=== PATIENT | female | born 1960 | race Asian ===

== ENCOUNTER 2020-06-05 15:21 | Outpatient (REF) | payer OTHER, SELFPAY | END 2020-06-05 15:22 | disposition home or self-care (01) | LOC: HO.LAB 15:21 | PROVIDERS: Visit Provider Internal Medicine | DX: Z20.828 Contact with and (suspected) exposure to other viral communicable diseases (principal) | CPT/HCPCS: C9803; U0003 ==

== ENCOUNTER 2020-07-10 09:14 | Outpatient (REF) | payer OTHER, SELFPAY ==
[2020-07-10 11:10] LABS: MANUAL DIFF FLAG NO
[2020-07-10 11:16] LABS: Basophils Percent Auto 0.8 % (0-2); Eosinophils Absolute Auto 0.2 X10*3/uL (0.0-0.4); Eosinophils Percent Auto 4.2 % (0-4); Hematocrit 39.8 % (37-47); Hemoglobin 13.3 g/dl (12.0-16.0); Imm Gran Abs Auto 0.01 X10*3/uL (0.00-0.03); Imm Gran Pct Auto 0.2 % (0.0-0.4); Lymphocytes Absolute Auto 2.1 X10*3/uL (1.2-4.9); Lymphocytes Percent Auto 39.8 % (20-40); Mean Corpuscular HGB Conc 33.4 g/dl (31.0-35.0); Mean Corpuscular Hemoglobin 27.5 pg (27.0-33.0); Mean Corpuscular Volume 82.4 fL (80-98); Mean Platelet Volume 9.2 fL (9.4-12.3); Monocytes Absolute Auto 0.4 X10*3/uL (0.1-1.2); Monocytes Percent Auto 7.1 % (2-11); Neutrophils Absolute Auto 2.5 X10*3/uL (2.0-8.3); Neutrophils Percent Auto 47.9 % (45-73); Platelet Count 298 X10*3/uL (160-400); Red Blood Count 4.83 X10*6/uL (4.20-5.50); Red Cell Distribution Width 15.7 % (11.0-16.0); White Blood Count 5.2 X10*3/uL (4.8-10.8)
[2020-07-10 11:49] LABS: Alanine Aminotransferase 18 U/L (0-31); Albumin Level 4.4 g/dL (3.5-5.0); Alkaline Phosphatase 85 U/L (39-117); Anion Gap 11 (12-20); Aspartate Amino Transferase 19 U/L (5-31); Bilirubin Total 1.1 mg/dL (0.0-1.0); Blood Urea Nitrogen 15 mg/dL (9-16); Calcium 9.9 mg/dL (8.4-10.2); Carbon Dioxide 23 mmol/L (22-29); Chloride 108 mmol/L (96-108); Cholesterol 180 mg/dL; Estimated Glomerular Filt Rate > 60; Glucose Fasting 97 mg/dL (60-99); HDL Cholesterol 52 mg/dL; LDL Cholesterol Calculated 100 mg/dl; Potassium 4.2 mmol/L (3.3-5.1); Sodium 138 mmol/L (135-145); Total Protein 7.2 g/dL (6.5-8.0); Triglycerides 140 mg/dL
[2020-07-10 12:00] LABS: Ferritin 214 ng/mL (10-250); TSH reflex Free T4 1.02 uIU/mL (0.32-4.0)
[2020-07-10 12:17] LABS: Folate 18.1 ng/mL (> or = 4.0); Vitamin B12 1221 pg/mL (200-900)
[2020-07-11 17:33] LABS: Calcium, Ionized 5.6 mg/dL (4.8-5.6)
== END 2020-07-10 09:15 | disposition home or self-care (01) ==
LOC: HO.HMGCLDS 09:14
PROVIDERS: PCP Internal Medicine; Visit Provider Internal Medicine
DX: Z00.01 Encounter for general adult medical examination with abnormal findings (principal); E21.3 Hyperparathyroidism, unspecified; I10 Essential (primary) hypertension; Z78.0 Asymptomatic menopausal state
CPT/HCPCS: 36415; 80053; 80061; 82306; 82330; 82607; 82728; 82746; 84443; 85025

== ENCOUNTER 2022-10-01 12:25 | Outpatient (AMB) | payer OTHER, SELFPAY ==
[2022-10-01 13:08] VITALS: BP 120/66; PULSE 60; O2SAT 98; BMI 19.9
--- NOTE | 2022-10-01 13:08 | A.OFFPC_ITS ---
Vital Signs 10/01/22 13:08 Height 5 ft 2 in Weight 109 lb BMI 19.9 BP 120/66 Blood Pressure Location Lt brachial Position Sitting Pulse 60 Pulse Source Pulse Oximeter Pulse Oximetry (%) 98 Oxygen Delivery Method Room Air Intake Visit Reasons: Annual PE Intake Note: Pt is here today for PE.Pt states that she had mammo done this year in July. Pt states that she does not have [employer]. Allergies No Known Allergies [No Known Allergies*] Allergy (Verified 10/21/23 00:34) Medication List - Last Reconciled 10/01/22 by Steffi Calderon MD amlodipine 2.5 mg PO DAILY ferrous sulfate 325 mg PO DAILY magnesium oxide 400 mg PO DAILY multivitamin with minerals (Hair,Skin and Nails tablet) 1 tab PO DAILY vitamin B complex (B Complex-Vitamin B12 tablet) 1 tab PO DAILY vitamin E 200 units PO DAILY Tobacco use date assessed: 10/01/22 HPI Annual PE HPI Details 63-year-old Lady here today for her phys ical exam. She has hypertension currently takes amlodipine 2.5 mg daily with blood pressure stable and controlled. She goes to [facility] imaging for her routine mammogram, last 1 on record was in 2020 but patient states that she goes every year. She had a Pap smear in 2018 which showed negative findings except for atrophic mucosa.. She had a screening colonoscopy done in 2013 by , which showed only presence of nonbleeding internal hemorrhoids, due again for recheck in 2023.. Has primary hyperparathyroidism currently asymptomatic, seen by [facility] endo who advised observation and monitoring of calcium levels. She is active exercises regularly, and eats a healthy diet. Has been feeling well with no complaints at present time. [facility] Medical History (Updated 10/12/23 @ 13:52 by Steffi Calderon MD) Cervical cancer screening Annual visit for general adult medical examination with abnormal findings Essential hypertension Hyperparathyroidism Menopause Surgical History History of colonoscopy History of tubal ligation History of section Family History Father HTN (hypertension) Arthritis Mother HTN (hypertension) Arthritis Brother No problems noted. Brother No problems noted. Brother No problems noted. Sister No problems noted. Sister No problems noted. Son No problems noted. Daughter No problems noted. Daughter No problems noted. Social History Housing: House Alcohol intake: current Alcohol intake frequency: holidays/special occasions only Alcohol type: wine Patient Tobacco Use Status: Former Tobacco user (over 30 years ago) e-Cigarette/Vaping Use: Never Used service: No Current occupational status: employed Cognitive needs: No Hearing needs: No Vision needs: Yes Questionnaire PHQ-9 Over the last 2 weeks, how often have you been bothered by any of the following problems? 1. Little interest or pleasure in doing things: not at all 2. Feeling down, depressed, or hopeless: not at all 3. Trouble falling or staying asleep, or sleeping too much: not at all 4. Feeling tired or having little energy: not at all 5. Poor appetite or overeating: not at all 6. Feeling bad about yourself - or that you are a failure or have let yourself or your family down: not at all 7. Trouble concentrating on things, such as reading the newspaper or watching television: not at all 8. Moving or speaking so slowly that other people could have noticed. Or the opposite - being so fidgety or restless that you have been moving around a lot more than usual: not at all 9. Thoughts that you would be better off or of hurting yourself in some way: not at all Total score: 0 Depression Screening Interpretation: Negative [id number] - PHQ-9 Billing: Yes Source: Developed by Drs. Tino Luis, Amalia Shields, Rasheed Chan and colleagues, with an educational eliezer from [employer]. Thrive Questionnaire Date Thrive assessed: 10/01/22 I am a: Patient What is your living situation today?: I have a steady place to live Within the past 12 months, did the food you bought not last and you didn't have the money to get more?: Never true Within the past 12 months, did you worry whether your food would run out before you got money to buy more?: Never true Do you have trouble paying for medicines?: No Do you have trouble getting transportation to medical appointments?: No Do you have trouble paying your heating and electricity bill?: No Do you have trouble taking care of your child, family member or friend?: No Do you have trouble with day-to-day activities such as bathing, preparing meals, shopping, managing finances, etc.?: No Are you currently unemployed and looking for a job?: No Are you interested in more education?: No AUDIT C Alcohol Use Questionnaire (AUDIT-C) 1. How often do you have a drink containing alcohol?: Monthly or less 2. How many drinks containing alcohol do you have on a typical day when you are drinking?: 1 or 2 3. How often do you have six or more drinks on one occasion?: Never Total Score: 1 PRANAY-7 AMB Questionnaire PRANAY-7 Date PRANAY - 7 assessed: 10/01/22 Feeling nervous, anxious, or on edge: 0 = Not at all Not being able to stop or control worryin = Not at all Worrying too much about different things: 0 = Not at all Trouble relaxin = Not at all Being so restless that it is hard to sit still: 0 = Not at all Becoming easily annoyed or irritable: 0 = Not at all Feeling afraid as if something awful might happen: 0 = Not at all Total PRANAY-7 score (0-4 normal; 5-9 mild; 10-14 moderate; 15-21 severe): 0 Source: Developed by Drs. Tino Luis, Amalia Shields, Rasheed Chan and colleagues, with an educational eliezer from [employer]. PRANAY-7 Assessment Billing PRANAY-7 Assessment Tool: PRANAY-7 Assessment 76085 Review of Systems Const Denies body aches, Denies fatigue, Denies fever(s), Denies headache(s) and Denies weakness Eyes Denies change in vision ENT Denies dizziness, Denies headache(s), Denies nasal congestion, Denies nasal discharge and Denies sore throat Card Denies chest pain, Denies lightheadedness, Denies palpitations and Denies dyspnea Resp Denies chest congestion, Denies cough, Denies dyspnea and Denies wheezing GI Denies abdominal pain, Denies change in bowel habits and Denies heartburn Denies urinary frequency, Denies dysuria and Denies urinary urgency Musc Denies back pain, Denies myalgias, Denies arthralgias and Denies stiffness Skin/Breast Denies lesions and Denies rash Neuro Denies dizziness, Denies headache(s), Denies memory loss and Denies weakness Psych Denies anxiety, Denies depression, Denies difficulty concentrating, Denies anhedonia and Denies memory loss Endo Denies fatigue, Denies polydipsia, Denies polyuria and Denies palpitations Derek/Lymph Denies easy bruising Aller/Immun Denies seasonal rhinorrhea and Denies wheezing Physical exam (Primary Care) Vital Signs: Last Vital Signs Pulse 60 10/01/22 13:08 BP 120/66 10/01/22 13:08 Pulse Ox 98 10/01/22 13:08 Oxygen Delivery Method Room Air 10/01/22 13:08 BMI result Body Mass Index 19.9 Tobacco/Smoking Status: Tobacco use Status Tobacco use date assessed 10/01/22 10/01/22 13:16 Patient Tobacco Use Status Former Tobacco user (over 30 10/01/22 13:16 years ago) e-Cigarette/Vaping Use Never Used 10/01/22 13:16 PHQ-9: PHQ-9 Score PHQ-9: Total score 0 10/01/22 14:15 Depression Screening Interpretation: Negative Thrive Assessment: Date of Thrive Assessment Date Thrive assessed 10/01/22 10/01/22 13:16 Const General: no acute distress and alert Orientation/consciousness: patient oriented x3 HENMT Head: Yes normocephalic Ears: external ears normal, TM's normal bilaterally and EAC's normal General nose exam: Normal external nose present and No nasal discharge present Face and sinus: Yes face symmetric Mouth: Normal oral and palatal mucosa present, tongue normal, oropharynx normal and moist mucous membranes Eyes General: appearance normal, both eyes and all related structures Eyelids: Yes eyelids normal Conjunctivae: conjunctivae normal Sclerae: sclerae normal Pupils: Equal, round and reactive pupils present EOM: EOMs intact bilaterally Neck Neck: Yes full ROM, Yes no lymphadenopathy and Yes supple Thyroid: Thyroid normal Chest Chest palpation & inspection: normal inspection of the chest Breast/axilla inspection: normal inspection of the breasts Breast/axilla palpation: normal palpation of the breasts Resp Effort & Inspection: normal respiratory effort and able to speak in complete sentences Auscultation: clear to auscultation bilaterally Cardio Rate: regular rate Rhythm: regular rhythm Heart sounds: S1 normal heart sound present and S2 normal heart sound present GI Palpation (GI): Soft to palpation, nontender, no guarding and no masses Auscultation: normal bowel sounds General: Yes no CVA tenderness Back/Spine/Pelvis Back: no CVA tenderness and No back tenderness Skin General skin exam: no rashes or lesions noted Neuro General: patient oriented x3, gait normal, moves all extremities, Normal light touch and pain sensation, no focal motor deficits and CN's II-XI intact bilaterally Cranial nerves: Yes Equal, round and reactive pupils present Cognition (Neuro): normal cognition Gait exam (Neuro): Normal gait present Motor exam (neuro): 5/5 motor strength present throughout Extrem General: Yes normal to inspection, Yes full ROM, Yes no joint enlargement, Yes no pedal edema and Yes normal gait Psych Appearance: grossly normal and well kempt Mental Status: mental status grossly normal Speech and movement: Normal speech and movement present Affect: normal affect Attitude: cooperative Thought process: Normal thought process present Thought content: Normal thought content present Results Reviewed Results Reviewed: Name: Tomasa Renee Age/Sex: 60/F : 1960 Unit#: [id number] Attend Dr: Steffi Calderon MD Re07/10/20 Status: DEP REF Location: [facility] Disch: SPEC : [id number] CARTER: 07/10/20 STATUS: COMP REQ : [id number] RECD: 07/10/[address]: Steffi Calderon MD COMP: 07/10/20 ENTERED: 07/10/20 [facility] DR: ORDERED: CMP Fast, Ferritin, Lipid Panel, Vitamin D 25-OH, TSH Rflx Test Result Flag Reference Sodium 138 135-145 mmol/L Potassium 4.2 3.3-5.1 mmol/L CL 108 96-108 mmol/L CO2 23 22-29 mmol/L Gap 11 L 12-20 BUN 15 9-16 mg/dL Creat 0.83 0.5-1.4 mg/dL EGFR > 60 NOTE: For -British individuals, multiply the result by 1.210. Chronic Kidney Disease: Estimated GFR < 60 mL/min/1.73m2 Severe Kidney Disease: Estimated GFR < 15 mL/min/1.73m2 FBS 97 60-99 mg/dL CA 9.9 8.4-10.2 mg/dL Ferritin 214 10-250 ng/mL Total Bili 1.1 H 0.0-1.0 mg/dL AST (GOT) 19 5-31 U/L ALT (GPT) 18 0-31 U/L Protein, Total 7.2 6.5-8.0 g/dL Alb 4.4 3.5-5.0 g/dL Triglyceride 140 mg/dL Desirable Triglyceride: less than 150 mg/dL Borderline High Triglyceride 150-199 mg/dL High Triglyceride: 200-499 mg/dL Very High Triglyceride: greater than or equal to 5OO mg/dL Chol 180 mg/dL Desirable Cholesterol: less than 200 mg/dL Borderline High Cholesterol: 200-239 mg/dL High Cholesterol: greater than 239 mg/dL LDL Calculated 100 mg/dl Desirable LDL: less than 100 mg/dL Near Optimal/Above Optimal LDL: 110-129 mg/dL Borderline High LDL: 130-159 mg/dL High LDL: 160-189 mg/dL Very High LDL: greater than or equal to 190 mg/dL HDL 52 mg/dL Desirable HDL: greater than 40 mg/dL Note: This HDL assay may give artificially low results in patients with liver disease. Alk Phos 85 39-117 U/L Vit D 25-OH Tot 24.0 >30 ng/mL Health Based Reference Values* < 20 ng/mL Deficient 20-30 ng/mL Insufficient > 30 ng/mL Sufficient *Piper MORILLO. N Engl J Med. 2007;[id number]:266-280 Care must be taken in interpreting Vitamin D results from different laboratories and methodologies. Published data demonstrated that results from patients undergoing hemodialysis may show a negative bias when tested with various automated 25-OH vitamin D assays when compared to LC-MS/MS. When testing samples from patients whose predominant form of Vitamin D is Vitamin D2, such as patients receiving Vitamin D2 supplementation, results that are subtherapeutic should be confirmed with another method such as LC-MS/MS. TSH 1.02 0.32-4.0 uIU/mL Assessment and Plan Assessment & Plan (1) Annual visit for general adult medical examination with abnormal findings: Code(s): Z00.01 - Encounter for general adult medical examination with abnormal findings Plan: Will check appropriate labs. Continue regular dental visit every 6 months and regular eye exams, at least every 2 years. Take vitamin-D 3 at 2000 IU per cap once a day, in addition to weight-bearing exercises to help maintain good muscle tone and weight control. Continue to do self-breast exam, and yearly mammogram, gets it at [facility]. Up-to-date with her cervical cancer screening and screening colonoscopy. She has had 1 COVID vaccine does not want to get further vaccination, up-to-date with her shingles vaccine and Tdap, declines flu shots (2) Hyperparathyroidism: Code(s): E21.3 - Hyperparathyroidism, unspecified Plan: Currently asymptomatic with serum calcium within normal limits. (3) Essential hypertension: Code(s): I10 - Essential (primary) hypertension Plan: Blood pressure well controlled on amlodipine 2.5 mg daily, will continue, reinforced importance of regular exercise and healthy eating habits. (4) Vitamin D deficiency: Code(s): E55.9 - Vitamin D deficiency, unspecified Plan: last labs showed vitamin-D at 24. Advised to start taking [id number] vitamin D3 at 2000 units daily Orders: Orders Complete Blood Count Auto Diff 10/01/22 E21.3 - Hyperparathyroidism, unspecified, I10 - Essential (primary) hypertension, Z00.01 - Encounter for general adult medical examination with abnormal findings Vitamin D 25-OH Total 10/01/22 E21.3 - Hyperparathyroidism, unspecified, I10 - Essential (primary) hypertension, Z00.01 - Encounter for general adult medical examination with abnormal findings Comprehensive [place]. Panel Fast 10/01/22 E21.3 - Hyperparathyroidism, unspecified, I10 - Essential (primary) hypertension, Z00.01 - Encounter for general adult medical examination with abnormal findings Lipid Panel 10/01/22 E21.3 - Hyperparathyroidism, unspecified, I10 - Essential (primary) hypertension, Z00.01 - Encounter for general adult medical examination with abnormal findings Vitamin B12 and Folate 10/01/22 E21.3 - Hyperparathyroidism, unspecified, I10 - Essential (primary) hypertension, Z00.01 - Encounter for general adult medical examination with abnormal findings Coding Level of Care Code Est Pt Prev Care 40-64y(79627) Diagnoses Annual visit for general adult medical examination with abnormal findings Z00.01 Hyperparathyroidism E21.3 Essential hypertension I10 Vitamin D deficiency E55.9 Additional Codes PRANAY-7 Assessment Billing - PRANAY-7 Assessment Tool: PRANAY-7 Assessment [id number] ([id number])
== END 2022-10-01 14:28 | disposition home or self-care (01) ==
LOC: HO.HMGC 12:25
PROVIDERS: PCP Internal Medicine; Visit Provider Internal Medicine
DX: Z00.01 Encounter for general adult medical examination with abnormal findings (principal); E21.3 Hyperparathyroidism, unspecified; I10 Essential (primary) hypertension; E55.9 Vitamin D deficiency, unspecified
CPT/HCPCS: 99499

== ENCOUNTER 2023-10-12 12:40 | Outpatient (AMB) | payer OTHER, SELFPAY ==
[2023-10-12 12:53] VITALS: BP 118/74; PULSE 73; O2SAT 98; BMI 19.8
--- NOTE | 2023-10-12 12:53 | A.OFFPC_ITS ---
Vital Signs 10/12/23 12:53 Height 5 ft 2 in Weight 108 lb BMI 19.8 BP 118/74 Blood Pressure Location Lt brachial Position Sitting Pulse 73 Pulse Source Pulse Oximeter Pulse Oximetry (%) 98 Oxygen Delivery Method Room Air Intake Visit Reasons: PE with pap Intake Note: Pt is here today for PE. Last pap 2019 negative Allergies No Known Allergies [No Known Allergies*] Allergy (Verified 10/21/23 00:34) Medication List - Last Reconciled 10/21/23 by Steffi Calderon MD amlodipine 2.5 mg PO DAILY ferrous sulfate 325 mg PO DAILY magnesium oxide 400 mg PO DAILY multivitamin with minerals (Hair,Skin and Nails tablet) 1 tab PO DAILY vitamin B complex (B Complex-Vitamin B12 tablet) 1 tab PO DAILY vitamin E 200 units PO DAILY Tobacco use date assessed: 10/12/23 Dental Screening Dental Screen Date: 10/12/23 Did you have a dental visit in the last 12 months?: Yes Did you have a dental problem in the last 6 months where you did not have access to dental care?: No Was dental information given to patient?: Patient has dentist HPI PE with pap HPI Details 63-year-old lady here today for physical exam. She has hypertension currently controlled on amlodipine 2.5 mg daily. Has history of vitamin-D deficiency in the past currently now on multivitamins that includes vitamin-D. Has history of primary hyperparathyroidism currently asymptomatic with serum calcium levels within normal limits. She is due now for her cervical cancer screening, last done in 2019 which only showed presence of atrophic vaginal mucosa. Up-to-date with her screening colonoscopy done in 2013 by , which showed negative findings. She only had 1 COVID vaccine did not want to get further vaccination, up-to-date with her shingles vaccine does not get flu shots up-to-date with her Tdap.. She goes to [facility] for her routine screening mammogram. Has been feeling well with no complaints at present time [facility] Medical History (Updated 10/12/23 @ 13:52 by Steffi Calderon MD) Cervical cancer screening Annual visit for general adult medical examination with abnormal findings Essential hypertension Hyperparathyroidism Menopause Surgical History History of colonoscopy History of tubal ligation History of section Family History Father HTN (hypertension) Arthritis Mother HTN (hypertension) Arthritis Brother No problems noted. Brother No problems noted. Brother No problems noted. Sister No problems noted. Sister No problems noted. Son No problems noted. Daughter No problems noted. Daughter No problems noted. Social History Housing: House Alcohol intake: current Alcohol intake frequency: holidays/special occasions only Alcohol type: wine Patient Tobacco Use Status: Former Tobacco user (over 30 years ago) e-Cigarette/Vaping Use: Never Used service: No Current occupational status: employed Cognitive needs: No Hearing needs: No Vision needs: Yes Questionnaire PHQ-9 Over the last 2 weeks, how often have you been bothered by any of the following problems? 1. Little interest or pleasure in doing things: not at all 2. Feeling down, depressed, or hopeless: not at all 3. Trouble falling or staying asleep, or sleeping too much: not at all 4. Feeling tired or having little energy: not at all 5. Poor appetite or overeating: not at all 6. Feeling bad about yourself - or that you are a failure or have let yourself or your family down: not at all 7. Trouble concentrating on things, such as reading the newspaper or watching television: not at all 9. Thoughts that you would be better off or of hurting yourself in some way: not at all Depression Screening Interpretation: Negative Depression Screening Done: Yes 81145 - PHQ-9 Billing: Yes Source: Developed by Drs. Tino Luis, Amalia Shields, Rasheed Chan and colleagues, with an educational eliezer from [employer]. Thrive Questionnaire Date Thrive assessed: 10/12/23 I am a: Patient What is your living situation today?: I have a steady place to live Within the past 12 months, did the food you bought not last and you didn't have the money to get more?: Never true Within the past 12 months, did you worry whether your food would run out before you got money to buy more?: Never true Do you have trouble paying for medicines?: No Do you have trouble getting transportation to medical appointments?: No Do you have trouble paying your heating and electricity bill?: No Do you have trouble taking care of your child, family member or friend?: No Do you have trouble with day-to-day activities such as bathing, preparing meals, shopping, managing finances, etc.?: No Are you currently unemployed and looking for a job?: No Are you interested in more education?: No Please select the resources that you would like help with: None THRIVE Score: 0 AUDIT C Alcohol Use Questionnaire (AUDIT-C) 1. How often do you have a drink containing alcohol?: Monthly or less 2. How many drinks containing alcohol do you have on a typical day when you are drinking?: 1 or 2 3. How often do you have six or more drinks on one occasion?: Never Total Score: 1 PRANAY-7 AMB Questionnaire PRANAY-7 Date PRANAY - 7 assessed: 10/12/23 Feeling nervous, anxious, or on edge: 1 = Several days Not being able to stop or control worryin = Several days Worrying too much about different things: 1 = Several days Trouble relaxin = Not at all Being so restless that it is hard to sit still: 0 = Not at all Becoming easily annoyed or irritable: 0 = Not at all Feeling afraid as if something awful might happen: 0 = Not at all Total PRANAY-7 score (0-4 normal; 5-9 mild; 10-14 moderate; 15-21 severe): 3 Source: Developed by Drs. Tino Luis, Amalia Shields, Rasheed Chan and colleagues, with an educational eliezer from [employer]. PRANAY-7 Assessment Billing PRANAY-7 Assessment Tool: PRANAY-7 Assessment 21464 Review of Systems Const Reports no additional complaints Eyes Details: utd with eye exam ENT Reports no additional complaints Card Denies chest pain, Denies irregular heart rhythm, Denies lightheadedness and Denies dyspnea Resp Denies cough and Denies dyspnea GI Reports no additional complaints Reports no additional complaints Musc Reports no additional complaints Skin/Breast Denies breast pain, Denies breast mass, Denies dry skin and Denies rash Neuro Reports no additional complaints Psych Reports no additional complaints Endo Reports no additional complaints Derek/Lymph Reports no additional complaints Aller/Immun Reports no additional complaints Physical exam (Primary Care) Vital Signs: Last Vital Signs Pulse 73 10/12/23 12:53 BP 118/74 10/12/23 12:53 Pulse Ox 98 10/12/23 12:53 Oxygen Delivery Method Room Air 10/12/23 12:53 BMI result Body Mass Index 19.8 Tobacco/Smoking Status: Tobacco use Status Tobacco use date assessed 10/12/23 10/12/23 12:57 Patient Tobacco Use Status Former Tobacco user (over 30 10/12/23 12:57 years ago) e-Cigarette/Vaping Use Never Used 10/12/23 12:57 Depression Screening Interpretation: Negative Thrive Assessment: Date of Thrive Assessment Date Thrive assessed 10/12/23 10/12/23 13:25 Const General: no acute distress and alert Orientation/consciousness: patient oriented x3 HENMT Head: Yes normocephalic Ears: external ears normal, TM's normal bilaterally and EAC's normal General nose exam: Normal external nose present Face and sinus: Yes face symmetric Mouth: Normal oral and palatal mucosa present, tongue normal, oropharynx normal and moist mucous membranes Eyes General: appearance normal, both eyes and all related structures Eyelids: Yes eyelids normal Conjunctivae: conjunctivae normal Sclerae: sclerae normal Pupils: Equal, round and reactive pupils present EOM: EOMs intact bilaterally Neck Neck: Yes full ROM, Yes no lymphadenopathy and Yes supple Thyroid: Thyroid normal Chest Chest palpation & inspection: normal inspection of the chest Breast/axilla inspection: normal inspection of the breasts Breast/axilla palpation: normal palpation of the breasts Resp Effort & Inspection: normal respiratory effort and able to speak in complete sentences Auscultation: clear to auscultation bilaterally Cardio Rate: regular rate Rhythm: regular rhythm Heart sounds: S1 normal heart sound present and S2 normal heart sound present GI Palpation (GI): Soft to palpation, nontender, no guarding and no masses Auscultation: normal bowel sounds General: Yes bladder normal to palpation and Yes no CVA tenderness External Female Exam: normal external appearance and normal appearance of the urethra Speculum Exam - Vagina: normal appearance of the vagina, normal palpation and vagina atrophic Speculum Exam - Cervix: normal appearance of the cervix and normal palpation Bimanual exam- vagina & uterus: normal palpation, bladder normal to palpation, normal palpation and non-tender Bimanual Exam- Adnexa, other: no masses, normal and No adnexal tenderness Back/Spine/Pelvis Back: no CVA tenderness and No back tenderness Skin General skin exam: no rashes or lesions noted Neuro General: patient oriented x3, gait normal, moves all extremities, Normal light touch and pain sensation, no focal motor deficits and CN's II-XI intact bilaterally Cranial nerves: Yes Equal, round and reactive pupils present Cognition (Neuro): normal cognition Gait exam (Neuro): Normal gait present Motor exam (neuro): 5/5 motor strength present throughout Extrem General: Yes normal to inspection, Yes full ROM, Yes no joint enlargement, Yes no pedal edema and Yes normal gait Psych Appearance: grossly normal and well kempt Mental Status: mental status grossly normal Speech and movement: Normal speech and movement present Affect: normal affect Attitude: cooperative Thought process: Normal thought process present Thought content: Normal thought content present Assessment and Plan Assessment & Plan (1) Hyperparathyroidism: Code(s): E21.3 - Hyperparathyroidism, unspecified (2) Essential hypertension: Code(s): I10 - Essential (primary) hypertension (3) Annual visit for general adult medical examination with abnormal findings: Code(s): Z00.01 - Encounter for general adult medical examination with abnormal findings Plan: Will check appropriate labs. Continue regular dental visit every 6 months and regular eye exams, at least every 2 years. Continued regular exercise, adhere nce to healthy eating habits, continue taking vitamin-D 3 at least 2000 units daily. Continue to do self-breast exam, and get yearly mammogram Pap smear done today.. Patient states she will contact Dr. Shaikh to schedule her repeat screening colonoscopy. Up-to-date with her shingles vaccine, does not want to get further COVID vaccination or flu shot, up-to-date with her Tdap (4) Cervical cancer screening: Code(s): Z12.4 - Encounter for screening for malignant neoplasm of cervix Plan: Pap smear done today Orders: Orders Vitamin D 25-OH Total 10/12/23 Z00.01 - Encounter for general adult medical examination with abnormal findings, E21.3 - Hyperparathyroidism, unspecified, I10 - Essential (primary) hypertension, Z78.0 - Asymptomatic menopausal state Basic Metabolic Panel Fasting 10/12/23 Z00. - Encounter for general adult medical examination with abnormal findings, E21.3 - Hyperparathyroidism, unspecified, I10 - Essential (primary) hypertension, Z78.0 - Asymptomatic menopausal state Alanine Aminotransferase 10/12/23 Z00.01 - Encounter for general adult medical examination with abnormal findings, E21.3 - Hyperparathyroidism, unspecified, I10 - Essential (primary) hypertension, Z78.0 - Asymptomatic menopausal state Aspartate Amino Transferase 10/12/23 Z00.01 - Encounter for general adult medical examination with abnormal findings, E21.3 - Hyperparathyroidism, unspecified, I10 - Essential (primary) hypertension, Z78.0 - Asymptomatic menopausal state Lipid Panel 10/12/23 Z00.01 - Encounter for general adult medical examination with abnormal findings, E21.3 - Hyperparathyroidism, unspecified, I10 - Essential (primary) hypertension, Z78.0 - Asymptomatic menopausal state Vitamin B12 and Folate 10/12/23 Z00.01 - Encounter for general adult medical examination with abnormal findings, E21.3 - Hyperparathyroidism, unspecified, I10 - Essential (primary) hypertension, Z78.0 - Asymptomatic menopausal state Coding Level of Care Code Est Pt Prev Care 40-64y([id number]) Diagnoses Hyperparathyroidism E21.3 Essential hypertension I10 Annual visit for general adult medical examination with abnormal findings Z00.01 Cervical cancer screening Z12.4 Additional Codes PRANAY-7 Assessment Billing - PRANAY-7 Assessment Tool: PRANAY-7 Assessment 49302 ([id number])
== END 2023-10-12 13:58 | disposition home or self-care (01) ==
PROVIDERS: Visit Provider Internal Medicine
DX: Z00.00 Encounter for general adult medical examination without abnormal findings (principal); E21.3 Hyperparathyroidism, unspecified; I10 Essential (primary) hypertension
CPT/HCPCS: 99396

== ENCOUNTER 2023-10-12 13:50 | Outpatient (REF) | payer OTHER, SELFPAY | END 2023-10-12 13:51 | disposition home or self-care (01) | LOC: HO.LAB 13:50 | PROVIDERS: Visit Provider Internal Medicine | DX: Z13.89 Encounter for screening for other disorder (principal) ==

== ENCOUNTER 2023-10-21 06:08 | Outpatient (REF) | payer OTHER, SELFPAY ==
[2023-10-21 11:11] LABS: Alanine Aminotransferase 18 U/L (0-31); Anion Gap 13 (12-20); Aspartate Amino Transferase 20 U/L (5-31); Blood Urea Nitrogen 16 mg/dL (9-16); Calcium 10.2 mg/dL (8.4-10.2); Carbon Dioxide 25 mmol/L (22-29); Chloride 107 mmol/L (96-108); Cholesterol 156 mg/dL (<200); Estimated Glomerular Filt Rate > 60; Glucose Fasting 87 mg/dL (60-99); HDL Cholesterol 62 mg/dL (>40); LDL Cholesterol Calculated 75 mg/dL (<100); Potassium 3.9 mmol/L (3.3-5.1); Sodium 141 mmol/L (135-145); Triglycerides 99 mg/dL (<150)
[2023-10-21 11:28] LABS: Vitamin D 25-OH Total 35.1 ng/mL (>30)
[2023-10-21 11:33] LABS: Folate 12.9 ng/mL (> or = 4.0); Vitamin B12 1662 pg/mL (200-900)
== END 2023-10-21 06:09 | disposition home or self-care (01) ==
LOC: HO.HMGCLDS 06:08
PROVIDERS: PCP Internal Medicine; Visit Provider Internal Medicine
DX: Z00.01 Encounter for general adult medical examination with abnormal findings (principal); E21.3 Hyperparathyroidism, unspecified; I10 Essential (primary) hypertension; Z78.0 Asymptomatic menopausal state
CPT/HCPCS: 36415; 80048; 80061; 82306; 82607; 82746; 84450; 84460

== ENCOUNTER 2023-11-15 13:55 | Outpatient (REF) | payer OTHER, SELFPAY | END 2023-11-15 13:56 | disposition home or self-care (01) | LOC: HO.MAMMO 13:55 | PROVIDERS: PCP Internal Medicine; Visit Provider Internal Medicine | DX: Z12.31 Encounter for screening mammogram for malignant neoplasm of breast (principal) | CPT/HCPCS: 77063; 77067 ==

== ENCOUNTER → 2023-11-15 14:00 | Outpatient (BNV) | payer OTHER, SELFPAY | PROVIDERS: PCP Internal Medicine; Visit Provider Radiology Diagnostic Radiology | DX: Z12.31 Encounter for screening mammogram for malignant neoplasm of breast (principal) | CPT/HCPCS: 77063; 77067 ==

== ENCOUNTER 2024-10-18 06:41 | Outpatient (REF) | payer OTHER, SELFPAY ==
[2024-10-18 11:05] LABS: Anion Gap 11 (12-20); Blood Urea Nitrogen 19 mg/dL (9-16); Calcium 10.5 mg/dL (8.4-10.2); Carbon Dioxide 27 mmol/L (22-29); Chloride 108 mmol/L (96-108); Cholesterol 154 mg/dL (<200); Estimated Glomerular Filt Rate > 60; Glucose Fasting 92 mg/dL (60-99); HDL Cholesterol 61 mg/dL (>40); LDL Cholesterol Calculated 75 mg/dL (<100); Potassium 4.1 mmol/L (3.3-5.1); Sodium 142 mmol/L (135-145); Triglycerides 94 mg/dL (<150)
[2024-10-18 11:20] LABS: Vitamin D 25-OH Total 38.9 ng/mL (>30)
[2024-10-18 11:29] LABS: Folate 13.1 ng/mL (> or = 4.0); Vitamin B12 952 pg/mL (200-900)
== END 2024-10-18 06:42 | disposition home or self-care (01) ==
LOC: HO.HMGCLDS 06:41
PROVIDERS: PCP Internal Medicine; Visit Provider Internal Medicine
DX: E21.3 Hyperparathyroidism, unspecified (principal); Z78.0 Asymptomatic menopausal state; I10 Essential (primary) hypertension
CPT/HCPCS: 36415; 80048; 80061; 82306; 82607; 82746

== ENCOUNTER 2024-10-23 12:39 | Outpatient (REF) | payer OTHER, SELFPAY ==
[2024-10-23 16:23] LABS: MANUAL DIFF FLAG NO
[2024-10-23 16:42] LABS: Basophils Absolute Auto 0.1 X10*3/uL (0.0-0.2); Eosinophils Absolute Auto 0.2 X10*3/uL (0.0-0.4); Eosinophils Percent Auto 3.2 % (0-4); Hematocrit 39.8 % (37.0-47.0); Hemoglobin 13.4 g/dl (12.0-16.0); Imm Gran Abs Auto 0.01 X10*3/uL (0.00-0.03); Imm Gran Pct Auto 0.2 % (0.0-0.4); Lymphocytes Absolute Auto 2.8 X10*3/uL (1.2-4.9); Lymphocytes Percent Auto 44.1 % (20-40); Mean Corpuscular HGB Conc 33.7 g/dl (31.0-35.0); Mean Corpuscular Hemoglobin 27.9 pg (27.0-33.0); Mean Corpuscular Volume 82.9 fL (80.0-98.0); Mean Platelet Volume 9.8 fL (9.4-12.3); Monocytes Absolute Auto 0.5 X10*3/uL (0.1-1.2); Monocytes Percent Auto 7.2 % (2-11); Neutrophils Absolute Auto 2.8 x10*3/uL (2.0-8.3); Neutrophils Percent Auto 44.3 % (45-73); Platelet Count 278 X10*3/uL (160-400); Red Cell Distribution Width 15.9 % (11.0-16.0); White Blood Count 6.3 X10*3/uL (4.8-10.8)
[2024-10-23 17:06] LABS: Iron 74 mcg/dL (30-160); Percent Iron Saturation 34 % (15-50); Total Iron Binding Capacity 220 mcg/dL (228-428); Unsaturated Iron Binding 146 ug/dL
== END 2024-10-23 12:40 | disposition home or self-care (01) ==
LOC: HO.HMGCLDS 12:39
PROVIDERS: PCP Internal Medicine; Visit Provider Internal Medicine
DX: Z00.01 Encounter for general adult medical examination with abnormal findings (principal); R42 Dizziness and giddiness; L60.2 Onychogryphosis; I10 Essential (primary) hypertension; E21.3 Hyperparathyroidism, unspecified; Z79.899 Other long term (current) drug therapy; Z71.89 Other specified counseling
CPT/HCPCS: 36415; 83540; 85025; 96127

== ENCOUNTER 2024-10-23 12:39 | Outpatient (AMB) | payer OTHER, SELFPAY ==
--- NOTE | 2024-10-23 12:41 | A.OFFPC_ITS ---
Vital Signs 10/23/24 12:44 Height 5 ft 2 in Weight 108 lb BMI 19.8 BP 100/80 Blood Pressure Location Rt brachial Position Sitting Respiration 14 Pulse 57 Pulse Source Pulse Oximeter Temp 98.3 F Temp Source Oral Pulse Oximetry (%) 98 Oxygen Delivery Method Room Air Intake Visit Reasons: PE Intake Note: Pt is here today for her PE: Last mammogram 11/15/23, papsmear 09/12/18, colonoscopy 04/17/14 Allergies No Known Allergies [No Known Allergies*] Allergy (Verified 10/23/24 13:02) Medication List - Last Reconciled 10/23/24 by Steffi Calderon MD amlodipine 2.5 mg PO DAILY ferrous sulfate 325 mg PO DAILY magnesium oxide 400 mg PO DAILY lhqholyn-hgcewcj-mwdk-lutein tabs PO Tobacco use date assessed: 10/23/24 Dental Screening Dental Screen Date: 10/23/24 Did you have a dental visit in the last 12 months?: Yes Did you have a dental problem in the last 6 months where you did not have access to dental care?: Yes Was dental information given to patient?: Patient has dentist HPI PE HPI Details 64-year-old lady with hypertension, hype rparathyroidism, here today for her physical exam. She is currently up-to-date with her breast cancer screening, and cervical cancer screening, does not want to get repeat Pap smear done today. She had a colonoscopy done in [address] Shaikh which showed only presence of internal hemorrhoids. Would like to get Cologuard testing instead for colon cancer screening, but will check with insurance 1st regarding cost as she is self pay.. Complains of thickened discolored toenails on both big toes and also starting to affect a 3rd toe on the right foot. Requesting referral for Pod iatry, Is scheduled to go on a trip to [place] and will be climbing [facility], requesting prescription for acetazolamide to prevent altitude sickness. Has had brief episodes of lightheadedness especially when getting up from a sitting position or lying down, resolved spontaneously after several sec. Denies any accompanying chest pain or shortness of breath. Patient thinks that she might be having low blood pressure, currently on amlodipine 2.5 mg once a day only. Has history of hyperparathyroidism currently being observed. Blood pressure has been stable denies any joint pains. She has been feeling well otherwise, once and goes to the gym for exercise. Avoids eating processed foods or take out, cooks her meals [facility] Medical History (Updated 10/26/24 @ 17:16 by Steffi Calderon MD) Hypercalcemia Cervical cancer screening Annual visit for general adult medical examination with abnormal findings Essential hypertension Hyperparathyroidism Menopause Surgical History History of colonoscopy History of tubal ligation History of section Family History Father HTN (hypertension) Arthritis Mother HTN (hypertension) Arthritis Brother No problems noted. Brother No problems noted. Brother No problems noted. Sister No problems noted. Sister No problems noted. Son No problems noted. Daughter No problems noted. Daughter No problems noted. Social History Housing: House Alcohol intake: current Alcohol intake frequency: holidays/special occasions only Alcohol type: wine Patient Tobacco Use Status: Former Tobacco user (over 30 years ago) e-Cigarette/Vaping Use: Never Used service: No Current occupational status: employed Cognitive needs: No Hearing needs: No Vision needs: Yes Female Reproductive History Menstrual Menopause type: natural History of abnormal pap smear: No Questionnaire PHQ-9 Over the last 2 weeks, how often have you been bothered by any of the following problems? 1. Little interest or pleasure in doing things: not at all 2. Feeling down, depressed, or hopeless: not at all 3. Trouble falling or staying asleep, or sleeping too much: several days 4. Feeling tired or having little energy: not at all 5. Poor appetite or overeating: not at all 6. Feeling bad about yourself - or that you are a failure or have let yourself or your family down: not at all 7. Trouble concentrating on things, such as reading the newspaper or watching television: not at all 8. Moving or speaking so slowly that other people could have noticed. Or the opposite - being so fidgety or restless that you have been moving around a lot more than usual: not at all 9. Thoughts that you would be better off or of hurting yourself in some way: not at all Total score: 1 Depression Screening Interpretation: Negative Depression Screening Done: Yes 52301 - PHQ-9 Billing: Yes Source: Developed by Amalia Salguero Kurt Kroenke and colleagues, with an educational eliezer from [employer]. Thrive Questionnaire Date Thrive assessed: 10/23/24 I am a: Patient What is your living situation today?: I have a steady place to live Within the past 12 months, did the food you bought not last and you didn't have the money to get more?: Never true Within the past 12 months, did you worry whether your food would run out before you got money to buy more?: Never true Do you have trouble paying for medicines?: No Do you have trouble getting transportation to medical appointments?: No Do you have trouble paying your heating and electricity bill?: No Do you have trouble taking care of your child, family member or friend?: No Do you have trouble with day-to-day activities such as bathing, preparing meals, shopping, managing finances, etc.?: No Are you currently unemployed and looking for a job?: No Are you interested in more education?: No Please select the resources that you would like help with: None Currently or been in a relationship where the following occur: No concerns reported THRIVE Score: 0 AUDIT C Alcohol Use Questionnaire (AUDIT-C) 1. How often do you have a drink containing alcohol?: Never Total Score: 0 PRANAY-7 AMB Questionnaire PRANAY-7 Date PRANAY - 7 assessed: 10/23/24 Feeling nervous, anxious, or on edge: 0 = Not at all Not being able to stop or control worryin = Not at all Worrying too much about different things: 0 = Not at all Trouble relaxin = Not at all Being so restless that it is hard to sit still: 0 = Not at all Becoming easily annoyed or irritable: 0 = Not at all Feeling afraid as if something awful might happen: 0 = Not at all Total PRANAY-7 score (0-4 normal; 5-9 mild; 10-14 moderate; 15-21 severe): 0 Source: Developed by Amalia Salguero Kurt Kroenke and colleagues, with an educational eliezer from [employer]. PRANAY-7 Assessment Billing PRANAY-7 Assessment Tool: PRANAY-7 Assessment 82537 Review of Systems Const Reports as per HPI and Reports no additional complaints Eyes Details: utd with eye exam ENT Reports no additional complaints Card Denies chest pain, Denies irregular heart rhythm, Denies lightheadedness and Denies dyspnea Resp Denies cough and Denies dyspnea GI Reports no additional complaints Reports no additional complaints Musc Reports no additional complaints Skin/Breast Denies breast pain, Denies breast mass, Denies dry skin, Reports nail changes (As per HPI) and Denies rash Neuro Reports no additional complaints Psych Reports no additional complaints Endo Reports no additional complaints Derek/Lymph Reports no additional complaints Aller/Immun Reports no additional complaints Physical exam (Primary Care) Vital Signs: Last Vital Signs Temp 98.3 F 10/23/24 12:44 Pulse 57 10/23/24 12:44 Resp 14 10/23/24 12:44 BP 100/80 10/23/24 12:44 Pulse Ox 98 10/23/24 12:44 Oxygen Delivery Method Room Air 10/23/24 12:44 BMI result Body Mass Index 19.8 Tobacco/Smoking Status: Tobacco use Status Tobacco use date assessed 10/23/24 10/23/24 12:51 Patient Tobacco Use Status Former Tobacco user (over 30 10/23/24 12:42 years ago) e-Cigarette/Vaping Use Never Used 10/23/24 12:42 PHQ-9: PHQ-9 Score PHQ-9: Total score 1 10/26/24 17:03 Depression Screening Interpretation: Negative Thrive Assessment: Date of Thrive Assessment Date Thrive assessed 10/23/24 10/23/24 12:51 Currently or been in a relationship where the following occur: No concerns reported Const General: no acute distress and alert Orientation/consciousness: patient oriented x3 HENMT Head: Yes normocephalic Ears: external ears normal, TM's normal bilaterally and EAC's normal General nose exam: Normal external nose present Face and sinus: Yes face symmetric Mouth: Normal oral and palatal mucosa present, tongue normal, oropharynx normal and moist mucous membranes Eyes General: appearance normal, both eyes and all related structures Eyelids: Yes eyelids normal Conjunctivae: conjunctivae normal Sclerae: sclerae normal Pupils: Equal, round and reactive pupils present EOM: EOMs intact bilaterally Neck Neck: Yes full ROM, Yes no lymphadenopathy and Yes supple Thyroid: Thyroid normal Chest Chest palpation & inspection: normal inspection of the chest Breast/axilla inspection: normal inspection of the breasts Breast/axilla palpation: normal palpation of the breasts Resp Effort & Inspection: normal respiratory effort and able to speak in complete sentences Auscultation: clear to auscultation bilaterally Cardio Rate: regular rate Rhythm: regular rhythm Heart sounds: S1 normal heart sound present and S2 normal heart sound present GI Palpation (GI): Soft to palpation, nontender, no guarding and no masses Auscultation: normal bowel sounds General: Yes no CVA tenderness Back/Spine/Pelvis Back: no CVA tenderness and No back tenderness Skin General skin exam: no rashes or lesions noted Nails: yellow and thickened (Toenails on both big toes and on 3rd toe ) Neuro General: patient oriented x3, gait normal, moves all extremities, Normal light touch and pain sensation, no focal motor deficits and CN's II-XI intact bilaterally Cranial nerves: Yes Equal, round and reactive pupils present Cognition (Neuro): normal cognition Gait exam (Neuro): Normal gait present Motor exam (neuro): 5/5 motor strength present throughout Extrem General: Yes normal to inspection, Yes full ROM, Yes no joint enlargement, Yes no pedal edema and Yes normal gait Psych Appearance: grossly normal and well kempt Mental Status: mental status grossly normal Speech and movement: Normal speech and movement present Affect: normal affect Attitude: cooperative Thought process: Normal thought process present Thought content: Normal thought content present Results Reviewed Results Reviewed: alta: Tomasa Renee Age/Sex: 64/F : 1960 [id number]#: [id number] Attend Dr: Steffi Calderon MD Re10/18/24 Status: DEP [facility]: SPEC : [id number] CARTER: 10/18/24 STATUS: COMP REQ : [id number] RECD: 10/18/[address]: Steffi Calderon MD COMP: 10/18/24 ENTERED: 10/18/[address]: ORDERED: Met Prof Fast, Lipid Panel, Vitamin D 25-OH Test Result Flag Reference Sodium 142 135-145 mmol/L Potassium 4.1 3.3-5.1 mmol/L CL 108 96-108 mmol/L CO2 27 22-29 mmol/L Gap 11 L 12-20 BUN 19 H 9-16 mg/dL Creat 0.77 0.5-1.4 mg/dL eGFR > 60 Chronic Kidney Disease: Estimated GFR < 60 mL/min/1.73m2 Severe Kidney Disease: Estimated GFR < 15 mL/m in/1.73m2 FBS 92 60-99 mg/dL CA 10.5 H 8.4-10.2 mg/dL Triglyceride 94 <150 mg/dL Desirable Triglyceride: less than 150 mg/dL Borderline High Triglyceride 150-199 mg/dL High Triglyceride: 200-499 mg/dL Very High Triglyceride: greater than or equal to 5OO mg/dL Cholesterol 154 <200 mg/dL Desirable Cholesterol: less than 200 mg/dL Borderline High Cholesterol: 200-239 mg/dL High Cholesterol: greater than 239 mg/dL LDL Calculated 75 <100 mg/dL Desirable LDL: less than 100 mg/dL Near Optimal/Above Optimal LDL: 110-129 mg/dL Borderline High LDL: 130-159 mg/dL High LDL: 160-189 mg/dL Very High LDL: greater than or equal to 190 mg/dL HDL 61 >40 mg/dL Desirable HDL: greater than 40 mg/dL Note: This HDL assay may give artificially low results in patients with liver disease. Vitamin D 25-OH 38.9 >30 ng/mL Health Based Reference Values* < 20 ng/mL Deficient 20-30 ng/mL Insufficient > 30 ng/mL Sufficient Coding Level of Care Code Est Pt Prev Care 40-64y(62813) Diagnoses Annual visit for general adult medical examination with abnormal findings Z00. Intermittent lightheadedness R42 Hypertrophic toenail L60.2 Essential hypertension I10 Hyperparathyroidism E21.3 Advanced directives, counseling/discussion Z71.89 Additional Codes PRANAY-7 Assessment Billing - PRANAY-7 Assessment Tool: PRANAY-7 Assessment 63725 ([id number]) PHQ-9 - 84934 - PHQ-9 Billing: Yes ([id number]) Assessment & Plan Assessment & Plan (1) Annual visit for general adult medical examination with abnormal findings: Code(s): Z00.01 - Encounter for general adult medical examination with abnormal findings Category: Medical Plan: Will check appropriate labs. Continue regular dental visit every 6 months and regular eye exams, at least every 2 years. Continue with regular moderate intensity exercise and healthy eating habits . Instructed to do self-breast exam, and continue with yearly mammogram, patient states she will schedule mammogram later this year. Does not want to do cervical cancer screenings at present Pap smear results was normal and showing atrophic vaginal mucosa. Overdue for her colon cancer screening, last 1 was done in 2013, patient will check with insurance whether Cologuard testing is something she can afford at this time, as she is self pay. (2) Intermittent lightheadedness: Code(s): R42 - Dizziness and giddiness Plan: Ordered CBC and iron profile (3) Hypertrophic toenail: Code(s): L60.2 - Onychogryphosis Plan: Podiatry consult ordered (4) Essential hypertension: Code(s): I10 - Essential (primary) hypertension Category: Medical Plan: Blood pressure today on the lower range. Advised to continue monitor blood pressure at home, and call if consistently falling below 100/80. Currently on amlodipine 2.5 mg daily with (5) Hyperparathyroidism: Code(s): E21.3 - Hyperparathyroidism, unspecified Category: Medical Plan: Serum calcium is mildly elevated at 10.5. Patient currently asymptomatic, will continue to monitor (6) Advanced directives, counseling/discussion: Code(s): Z71.89 - Other specified counseling Plan: Initiated the conversation about Advanced Directives. Advanced Directives help patients prepare for current and future decisions about their medical treatment and place of care. Discussed with patient that it is a process where a patients current condition and prognosis are reviewed, their wishes for information regarding their illness are elicited, and likely medical dilemmas are presented and options discussed. Healthcare proxy form completed today. The form can be amended as needed, reviewed yearly and make changes as needed Orders: Orders Complete Blood Count Auto Diff 10/23/24 R42 - Dizziness and giddiness IRON PROFILE 10/23/24 R42 - Dizziness and giddiness Referrals Podiatry Referral L60.2 - Onychogryphosis Medications: New acetazolamide Acetazolamide should be started the day before ascent and continued for two to four days after arrival at the target altitude. 125 mg PO Q12H 14 tabs 0RF
[2024-10-23 12:44] VITALS: BP 100/80; PULSE 57; RESP 14; TEMP 36.8; O2SAT 98; BMI 19.8
== END 2024-10-23 13:52 | disposition home or self-care (01) ==
LOC: HO.HMCC 12:40
PROVIDERS: PCP Internal Medicine; Visit Provider Internal Medicine
DX: Z00.01 Encounter for general adult medical examination with abnormal findings (principal); R42 Dizziness and giddiness; L60.2 Onychogryphosis; I10 Essential (primary) hypertension; E21.3 Hyperparathyroidism, unspecified; Z71.89 Other specified counseling

== ENCOUNTER 2025-05-22 11:06 | Outpatient (AMB) | payer OTHER, SELFPAY ==
--- OUTSIDE RECORDS SUMMARY | 2025-03-12 09:00 | XMS_ITS ---
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 Role Phone Yumiko MATTHEWS, Steffi Mortensen Primary Care Provider Un available Federico Chang Unavailable [phone] Tiffanie Wang Unavailable [phone] Encounters Encounter Location Date Provider Diagnosis [address] [address] 03/12/2025 Tiffanie Wang Plan Of Treatment Next Appt Details Provider Name:Federico Chang , 06/25/2025 01:00:00 PM, [address] [place] [address], [phone], Progress Notes * Debbie HERNANDEZOB:[birth year] (65 yo F)Acc No.[id number]:03/12/2025 Progress Notes Patient: Madelyn JACKSON Tomasa Provider: Pollo Wang DPM :1960 A ge:64 Y S ex:Female Date:03/12/2025 Address:[address] [place] [address] [id number] Pcp:Juice Ware Subjective: * Chief Complaints: * * Medical History: Objective: * Vitals: Assessment: Plan: * Treatment: * Images: * The named appointment provid er may or may not be the originator of this progress note, and it is not deemed complete until electronically signed by the appointment provider. Sign off status: Pending * Provider: Pollo Wang DPM Date: 1 Generated for Zuleyka Rodriguez/Erin on: 07/23/2024 02:45 PM EST
--- NOTE | 2025-05-22 11:17 | MHC.PC.OV ---
Vital Signs 05/22/25 11:18 Height 5 ft 2 in Weight 110 lb BMI 20.1 BP 120/80 Blood Pressure Location Lt brachial Position Sitting Respiration 16 Pulse 74 Pulse Source Pulse Oximeter Temp 97.7 F Temp Source Oral Pulse Oximetry (%) 95 Oxygen Delivery Method Room Air Intake Visit Reasons: blood pressure concerns Intake Note: Pt is here today c/o blood pressure concerns Cat Operator Required: No Allergies No Known Allergies (No Known Allergies*) Allergy (Verified 05/22/25 11:25) Medication List - Last Reconciled 05/22/25 by Steffi Calderon MD amlodipine 2.5 mg PO DAILY ferrous sulfate 325 mg PO DAILY magnesium oxide 400 mg PO DAILY lipomxte-xngqlap-mfcl-lutein tabs PO Tobacco use date assessed: 05/22/25 Dental Screening Dental Screen Date: 05/22/25 Did you have a dental visit in the last 12 months?: Yes Did you have a dental problem in the last 6 months where you did not have access to dental care?: No Was dental information given to patient?: Patient has dentist HPI blood pressure concerns HPI Details 65-year-old lady with history of hyper parathyroidism, hypertension, here today for follow-up on her blood pressure. Patient has been noticing that blood pressure has been fluctuating, sometimes going up to 170/80, but not accompanied by any headache, no chest pain or lightheadedness. She is currently on 2.5 mg amlodipine taken once a day but states that she keeps getting to take her medication. She stays active, engages in regular exercise, and has been adherent to healthy eating habits. [facility] Medical History Hypercalcemia Cervical cancer screening Annual visit for general adult medical examination with abnormal findings Essential hypertension Hyperparathyroidism Menopause Surgical History History of colonoscopy History of tubal ligation History of section Family History Father HTN (hypertension) Arthritis Mother HTN (hypertension) Arthritis Brother No problems noted. Brother No problems noted. Brother No problems noted. Sister No problems noted. Sister No problems noted. Son No problems noted. Daughter No problems noted. Daughter No problems noted. Social History Housing: House Alcohol intake: current Alcohol intake frequency: holidays/special occasions only Alcohol type: wine Patient Tobacco Use Status: Former Tobacco user (over 30 years ago) e-Cigarette/Vaping Use: Never Used service: No Current occupational status: employed Cognitive needs: No Hearing needs: No Vision needs: Yes Questionnaire PHQ-9 Over the last 2 weeks, how often have you been bothered by any of the following problems? 1. Little interest or pleasure in doing things: not at all 2. Feeling down, depressed, or hopeless: not at all 3. Trouble falling or staying asleep, or sleeping too much: several days 4. Feeling tired or having little energy: not at all 5. Poor appetite or overeating: not at all 6. Feeling bad about yourself - or that you are a failure or have let yourself or your family down: not at all 7. Trouble concentrating on things, such as reading the newspaper or watching television: not at all 8. Moving or speaking so slowly that other people could have noticed. Or the opposite - being so fidgety or restless that you have been moving around a lot more than usual: not at all 9. Thoughts that you would be better off or of hurting yourself in some way: not at all Total score: 1 Depression Screening Interpretation: Negative Depression Screening Done: Yes Source: Developed by Drs. Tino Luis, Amalia Shields, Rasheed Chan and colleagues, with an educational eliezer from [employer]. Thrive Questionnaire Date Thrive assessed: 10/23/24 I am a: Patient What is your living situation today?: I have a steady place to live Within the past 12 months, did the food you bought not last and you didn't have the money to get more?: Never true Within the past 12 months, did you worry whether your food would run out before you got money to buy more?: Never true Do you have trouble paying for medicines?: No Do you have trouble getting transportation to medical appointments?: No Do you have trouble paying your heating and electricity bill?: No Do you have trouble taking care of your child, family member or friend?: No Do you have trouble with day-to-day activities such as bathing, preparing meals, shopping, managing finances, etc.?: No Are you currently unemployed and looking for a job?: No Are you interested in more education?: No Please select the resources that you would like help with: None Currently or been in a relationship where the following occur: No concerns reported THRIVE Score: 0 PRANAY-7 AMB Questionnaire PRANAY-7 Date PRANAY - 7 assessed: 10/23/24 Source: Developed by Drs. Tino Luis, Amalia Shields, Rasheed Chan and colleagues, with an educational eliezer from [employer]. Review of Systems Const Reports no additional complaints Eyes Details: utd with eye exam ENT Reports no additional complaints Card Denies chest pain, Denies irregular heart rhythm, Denies lightheadedness and Denies dyspnea Resp Denies cough and Denies dyspnea GI Reports no additional complaints Reports no additional complaints Musc Reports no additional complaints Skin/Breast Denies breast pain, Denies breast mass, Denies dry skin, Reports nail changes (As per HPI) and Denies rash Neuro Reports no additional complaints Psych Reports no additional complaints Endo Reports no additional complaints Derek/Lymph Reports no additional complaints Aller/Immun Reports no additional complaints Physical exam (Primary Care) Vital Signs: Last Vital Signs Temp 97.7 F 05/22/25 11:18 Pulse 74 05/22/25 11:18 Resp 16 05/22/25 11:18 BP 120/80 05/22/25 11:18 Pulse Ox 95 05/22/25 11:18 Oxygen Delivery Method Room Air 05/22/25 11:18 BMI result Body Mass Index 20.1 Tobacco/Smoking Status: Tobacco use Status Tobacco use date assessed 05/22/25 05/22/25 11:25 Patient Tobacco Use Status Former Tobacco user (over 30 05/22/25 11:25 years ago) e-Cigarette/Vaping Use Never Used 05/22/25 11:25 PHQ-9: PHQ-9 Score PHQ-9: Total score 1 06/02/25 01:23 Depression Screening Interpretation: Negative Thrive Assessment: Date of Thrive Assessment Date Thrive assessed 10/23/24 05/22/25 11:25 Currently or been in a relationship where the following occur: No concerns reported Const General: no acute distress and alert Orientation/consciousness: patient oriented x3 [facility] Ears: external ears normal General nose exam: Normal external nose present Face and sinus: Yes face symmetric Mouth: Normal oral and palatal mucosa present and moist mucous membranes Eyes General: appearance normal, both eyes and all related structures Eyelids: Yes eyelids normal Conjunctivae: conjunctivae normal Sclerae: sclerae normal EOM: EOMs intact bilaterally Neck Neck: Yes full ROM, Yes no lymphadenopathy and Yes supple Thyroid: Thyroid normal Resp Effort & Inspection: normal respiratory effort and able to speak in complete sentences Auscultation: clear to auscultation bilaterally Cardio Rate: regular rate Rhythm: regular rhythm Heart sounds: S1 normal heart sound present and S2 normal heart sound present GI Palpation (GI): Soft to palpation, nontender, no guarding and no masses Auscultation: normal bowel sounds General: Yes no CVA tenderness Back/Spine/Pelvis Back: no CVA tenderness and No back tenderness Skin General skin exam: no rashes or lesions noted Nails: yellow and thickened (Toenails on both big toes and on 3rd toe ) Neuro General: patient oriented x3, gait normal, moves all extremities, no focal motor deficits and CN's II-XI intact bilaterally Cognition (Neuro): normal cognition Gait exam (Neuro): Normal gait present Motor exam (neuro): 5/5 motor strength present throughout Extrem General: Yes normal to inspection, Yes full ROM, Yes no joint enlargement, Yes no pedal edema and Yes normal gait Psych Appearance: grossly normal and well kempt Mental Status: mental status grossly normal Speech and movement: Normal speech and movement present Affect: normal affect Coding Level of Care Code Est Pt Level 4 (33372) Diagnoses Essential hypertension I10 Hypercalcemia E83.52 Intermittent palpitations R00.2 Assessment & Plan Assessment & Plan (1) Essential hypertension: Code(s): I10 - Essential (primary) hypertension Category: Medical Plan: Has been having fluctuating blood pressure readings. Continue with amlodipine 2.5 mg daily. Ordered a basic metabolic panel and ionized calcium and parathyroid hormone level (2) Hypercalcemia: Code(s): E83.52 - Hypercalcemia Category: Medical Plan: Ordered repeat basic metabolic panel including calcium, serum parathyroid hormone level, ionized calcium (3) Intermittent palpitations: Code(s): R00.2 - Palpitations Plan: Complaining of intermittent palpitations, none during this visit. Will check her TSH with reflex free T4 and hemoglobin hematocrit. Orders: Orders Basic Metabolic Panel Fasting 05/22/25 I10 - Essential (primary) hypertension, E83.52 - Hypercalcemia, E21.3 - Hyperparathyroidism, unspecified TSH reflex Free T4 05/22/25 R00.2 - Palpitations, Z86.2 - Personal history of diseases of the blood and blood-forming organs and certain disorders involving the immune mechanism Parathyroid Hormone Intact 05/22/25 I10 - Essential (primary) hypertension, E83.52 - Hypercalcemia, E21.3 - Hyperparathyroidism, unspecified Calcium, Ionized 05/22/25 I10 - Essential (primary) hypertension, E83.52 - Hypercalcemia, E21.3 - Hyperparathyroidism, unspecified Hemoglobin and Hematocrit 05/22/25 R00.2 - Palpitations, Z86.2 - Personal history of diseases of the blood and blood-forming organs and certain disorders involving the immune mechanism
[2025-05-22 11:18] VITALS: BP 120/80; PULSE 74; RESP 16; TEMP 36.5; O2SAT 95; BMI 20.1
--- OUTSIDE RECORDS SUMMARY | 2025-05-22 14:45 | XMS_ITS | Patient Health Record ---
Author Organization [facility] [address] Address [address] [place] [address] Care Team Providers Care Broach Trouble Shooter Name Role Phone Yumiko MATTHEWS, Steffi Mortensen Primary Care Provider Un available Federico Chang Unavailable [phone] Tiffanie Wang Unavailable [phone] Reason For Referral No Information Social History Tobacco Use: Social History Observation Description Date Details (start date - stop date) Never Smoker NA - NA Tobacco use other than smoking: Question Answer Notes Are you an other tobacco user? No Tobacco Control (Standard) Question Answer Notes Tobacco use: Nonsmoker Additional Findings: Tobacco non-user Current no nsmoker AUDIT-C (Standard) Question Answer Notes Did you have a drink contain ing alcohol in the past year? Yes How often did you have a dri nk containing alcohol in the past year? Monthly or less (1 point) How many drinks did you have on a typical day when you were drinking in the past year? 1 or 2 drinks (0 point) How often did you have six o r more drinks on one occasion in the past year? Never (0 point) Points 1 Interpretation Negative Encounters Encounter Location Date Provider Diagnosis [facility] [place] [address] 03/04/2025 Federico Chang Plan Of Treatment Next Appt Details Provider Name:Federico Chang , 06/25/2025 01:00:00 PM, [address] [facility], [place], [address], Insurance Providers Payer Name Payer Address Payer Phone Subscriber Number Group Number Insured Name Patient Relationship to Insured Coverage Start Date Coverage End Date [facility] [address] [place] [address] [phone] [id number] Mendez Renee Spouse - patient is the spouse of the insured Medical (General) History Medical History History ICD Code Chicken pox Surgical History Surgery Date(Month/Year) 08/21/99, 04/11/01
== END 2025-05-22 12:38 | disposition home or self-care (01) ==
LOC: HO.HMCC 11:07
PROVIDERS: PCP Internal Medicine; Visit Provider Internal Medicine
DX: I10 Essential (primary) hypertension (principal); E83.52 Hypercalcemia; R00.2 Palpitations

== ENCOUNTER 2025-05-31 09:09 | Outpatient (REF) | payer OTHER, SELFPAY ==
--- OUTSIDE RECORDS SUMMARY | 2025-03-12 09:00 | XMS_ITS ---
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 Name Role Phone Yumiko MATTHEWS, Steffi Mortensen Primary Care Provider Un available Federico Chang Unavailable [phone] Tiffanie Wang Unavailable [phone] Encounters Encounter Location Date Provider Diagnosis [address] [address] 03/12/2025 Tiffanie Wang Plan Of Treatment Next Appt Details Provider Name:Federico Chang , 06/25/2025 01:00:00 PM, [address] [place] [address], [phone], Progress Notes * Debbie HERNANDEZOB:[birth year] (65 yo F)Acc No.[id number]:03/12/2025 Progress Notes Patient: Madelyn JACKSON Tomasa Provider: Pollo Wang DPM :1960 A ge:64 Y S ex:Female Date:03/12/2025 Address:[address] [place] [address] [id number] Pcp:Juice Ware Subjective: * Chief Complaints: * [...] Date: 1 Generated for Zuleyka Rodriguez/Erin on: 08/01/2024 09:12 AM EST
--- OUTSIDE RECORDS SUMMARY | 2025-05-31 09:12 | XMS_ITS | Patient Health Record ---
Author Organization [facility] [address] [place] Address [address] [place] [address] Care Team Providers Care Budget Specialist Name Role Phone Yumiko MATTHEWS, Steffi Mortensen Primary Care Provider Un available Federico Chang Unavailable [phone] Tiffanie Wang Unavailable [phone] Reason For Referral No Information Social History [...] Negative Encounters Encounter Location Date Provider [facility] [place] [address] 03/04/2025 Federico Chang Plan Of Treatment Next Appt Details Provider Name:Federico Chang , 06/25/2025 01:00:00 PM, [address] [facility], [place], [address], Insurance Providers Payer Name Payer Address Payer Phone Subscriber Number Group Number Insured Name Patient Relationship to Insured Coverage Start Date Coverage End Date [facility] [address] [place] [address] [phone] [id number] Mendez Renee Spouse - patient is the spouse of the insured Medical (General) History Medical History History ICD Code Chicken pox Surgical History Surgery Date(Month/Year) 08/21/99, 04/11/01
[2025-05-31 10:33] LABS: Hematocrit 40.9 % (37.0-47.0); Hemoglobin 13.4 g/dl (12.0-16.0)
[2025-05-31 10:57] LABS: Anion Gap 10 (12-20); Blood Urea Nitrogen 19 mg/dL (9-16); Calcium 10.7 mg/dL (8.4-10.2); Carbon Dioxide 26 mmol/L (22-29); Chloride 109 mmol/L (96-108); Estimated Glomerular Filt Rate > 60; Potassium 4.5 mmol/L (3.3-5.1); Sodium 140 mmol/L (135-145)
[2025-05-31 11:00] LABS: Parathyroid Hormone Intact 175.2 pg/mL (8.7-77.1)
[2025-06-03 10:13] LABS: Calcium, Ionized 5.8 mg/dL (4.7-5.5)
== END 2025-05-31 09:10 | disposition home or self-care (01) ==
LOC: HO.HMGCLDS 09:09
PROVIDERS: PCP Internal Medicine; Visit Provider Internal Medicine
DX: E83.52 Hypercalcemia (principal); I10 Essential (primary) hypertension; R00.2 Palpitations; Z86.2 Personal history of diseases of the blood and blood-forming organs and certain disorders involving the immune mechanism
CPT/HCPCS: 36415; 80048; 82330; 83970; 84443; 85014; 85018